=== PATIENT | female | born 1960 | race Two or more races ===

== ENCOUNTER 2024-12-20 16:55 | Inpatient (IN) | payer MEDICARE, OTHER ==
[~2024-12-20] VITALS: Ht 162.6 cm; Wt 64.4 kg
[2024-12-20 17:43] LABS: PLATELET COUNT (AUTO) 218 K/uL (150-450); RED BLOOD CELL COUNT(AUTO) 3.45 MIL/uL (4.0-5.2); RED CELL DISTRIBUTION WIDTH 17.3 % (11.5-15.0); WHITE BLOOD COUNT (AUTO) 5.7 K/uL (4.3-11.0)
[2024-12-20 17:55] LABS: CALCIUM, SERUM 9.2 mg/dL (8.5-10.1); CREATININE 1.2 mg/dL (0.6-1.3); SODIUM SERUM 143 mmol/L (136-145); UREA NITROGEN, BLOOD 24 mg/dL (7-18)
[2024-12-20 17:56] LABS: APPEARANCE,URINE CLEAR (CLEAR); BLOOD, URINE NEGATIVE Ery/uL (NEGATIVE); LEUKOCYTE ESTERASE ,URINE NEGATIVE (NEGATIVE); NITRITE, URINE NEGATIVE (NEGATIVE); UGLUCOSE 2+ mg/dL (NEGATIVE)
[2024-12-20 18:03] LABS: ASPARTATE AMINOTRANSFERASE 18 U/L (15-37); TOTAL PROTEIN, SERUM 7.5 g/dL (6.4-8.2)
[2024-12-20 18:07] LABS: LACTIC ACID 1.6 mmol/L (0.4-2.0)
[2024-12-20 19:08] LABS: ADD URINE CULTURE NO; SQUAMOUS EPITHELIAL CELL,UR Moderate /HPF (None Seen)
[2024-12-20] MEDS ORDERED: Z GUARD REMEDY 4 OZ OINT TP PRN (20:00)
[2024-12-20] MEDS ORDERED: MAGNESIUM HYDROXIDE 30 ML UDC PO PRN (20:00)
[2024-12-20] MEDS ORDERED: MAG HYDROX/AL HYDROX/SIMETH 30 ML UDC PO PRN (20:00)
[2024-12-20] MEDS ORDERED: ONDANSETRON HCL/PF 4 MG/2 ML VIAL IVP PRN (20:00)
[2024-12-20] MEDS ORDERED: ACETAMINOPHEN 325 MG TABLET PO PRN (20:00)
[2024-12-20] MEDS: IV NS 0.9% 1,000 ML IV PRN (20:47)
[2024-12-20 21:05] VITALS: BP 134/76; TEMP 97.5; O2SAT 99
[2024-12-20] MEDS ORDERED: DEXTROSE 50%-WATER 50 ML DISP.SYRIN IV PRN (23:30)
[2024-12-21 06:26] LABS: PLATELET COUNT (AUTO) 205 K/uL (150-450); RED BLOOD CELL COUNT(AUTO) 3.26 MIL/uL (4.0-5.2); RED CELL DISTRIBUTION WIDTH 17.5 % (11.5-15.0); WHITE BLOOD COUNT (AUTO) 5.5 K/uL (4.3-11.0)
[2024-12-21] MEDS: BLOOD SUGAR DIAGNOSTIC 1 EACH STRIP IN SCH (06:33)
[2024-12-21] MEDS: INSULIN REGULAR, HUMAN 100 UNIT/ML 3 ML VIAL SQ PRN (06:36)
[2024-12-21 06:39] LABS: ASPARTATE AMINOTRANSFERASE 13.0 U/L (15-37); CALCIUM, SERUM 8.9 mg/dL (8.5-10.1); CREATININE 1.1 mg/dL (0.6-1.3); PHOSPHORUS 3.9 mg/dL (2.5-4.9); SODIUM SERUM 146.0 mmol/L (136-145); TOTAL PROTEIN, SERUM 6.7 g/dL (6.4-8.2); UREA NITROGEN, BLOOD 24.0 mg/dL (7-18)
[2024-12-21 08:00] VITALS: BP 132/79; TEMP 97.9; O2SAT 97
[2024-12-21 08:07] VITALS: BP 132/79; TEMP 97.9; O2SAT 97
[2024-12-21] MEDS ORDERED: VALP250S4 PO (11:59)
[2024-12-21] MEDS ORDERED: HYDR25TA4 PO (11:59)
[2024-12-21] MEDS ORDERED: CARB-36 PO (11:59)
[2024-12-21] MEDS ORDERED: AMLO5TAB4 PO (11:59)
[2024-12-21] MEDS ORDERED: EMPA10TA PO (11:59)
[2024-12-21] MEDS ORDERED: ATOR40TA PO (11:59)
[2024-12-21] MEDS ORDERED: VALP250S3 PO (11:59)
[2024-12-21] MEDS ORDERED: METF-440 PO (11:59)
[2024-12-21] MEDS ORDERED: OLAN10TA3 PO (11:59)
[2024-12-21] MEDS ORDERED: OLAN10TA6 PO (15:33)
[2024-12-21 16:00] VITALS: BP 142/85; TEMP 97.9; O2SAT 100
[2024-12-21] MEDS: OLANZAPINE ZYDIS 5 MG TAB.RAPDIS PO SCH (16:05)
[2024-12-21] MEDS: METFORMIN 500 MG TABLET PO SCH (16:05)
[2024-12-21] MEDS: CARBIDOPA/LEVODOPA 25/100 MG 1 UDTAB PO SCH (16:05)
[2024-12-21] MEDS: VALPROIC ACID 250 MG/5 ML UDC PO SCH ×2 (16:05→21:29)
[2024-12-21] MEDS ORDERED: OLANZAPINE 10 MG TABLET PO SCH (17:00)
[2024-12-21] MEDS ORDERED: VALPROIC ACID 250 MG/5 ML UDC PO SCH (17:00)
[2024-12-21 19:28] LABS: CREATININE, URINE 29.1 MG/DL (30.0-125.0); URINE SODIUM, RANDOM 109.0 mmol/l (40-220); URINE TOTAL PROTEIN 3.7 mg/dL (0-11.9)
[2024-12-22 02:07] VITALS: BP 115/93; TEMP 97.7; O2SAT 100
[2024-12-22 06:42] LABS: PLATELET COUNT (AUTO) 178 K/uL (150-450); RED BLOOD CELL COUNT(AUTO) 3.09 MIL/uL (4.0-5.2); RED CELL DISTRIBUTION WIDTH 17.4 % (11.5-15.0); WHITE BLOOD COUNT (AUTO) 5.7 K/uL (4.3-11.0)
[2024-12-22 07:08] LABS: ASPARTATE AMINOTRANSFERASE 14.0 U/L (15-37); CALCIUM, SERUM 8.4 mg/dL (8.5-10.1); CREATININE 1.0 mg/dL (0.6-1.3); PHOSPHORUS 2.3 mg/dL (2.5-4.9); SODIUM SERUM 146.0 mmol/L (136-145); TOTAL PROTEIN, SERUM 6.4 g/dL (6.4-8.2); UREA NITROGEN, BLOOD 32.0 mg/dL (7-18)
[2024-12-22 07:14] LABS: CREATINE KINASE, TOTAL 33.0 U/L (26-192)
[2024-12-22 08:00] VITALS: BP 107/71; TEMP 98.2; O2SAT 97
[2024-12-22] MEDS: ATORVASTATIN 40 MG TABLET PO SCH (08:21)
[2024-12-22] MEDS: HYDROCHLOROTHIAZIDE 25 MG TABLET PO SCH (08:22)
[2024-12-22] MEDS: AMLODIPINE BESYLATE 5 MG TABLET PO SCH (08:22)
[2024-12-22] MEDS: EMPAGLIFLOZIN 10 MG TABLET PO SCH (08:23)
[2024-12-22] MEDS: IV 1/2NS 1000 ML 1,000 ML IV SCH (10:59)
[2024-12-22 16:00] VITALS: BP 106/84; TEMP 97.5; O2SAT 99
[2024-12-22] MEDS: NEUTRA PHOS 1 POWD.PACKET PO ONE (16:25)
[2024-12-22 20:46] VITALS: BP 105/77; TEMP 97.9; O2SAT 97
[2024-12-23 07:08] LABS: ASPARTATE AMINOTRANSFERASE 18.0 U/L (15-37); CALCIUM, SERUM 8.6 mg/dL (8.5-10.1); CREATININE 0.8 mg/dL (0.6-1.3); PHOSPHORUS 3.0 mg/dL (2.5-4.9); SODIUM SERUM 144.0 mmol/L (136-145); TOTAL PROTEIN, SERUM 6.4 g/dL (6.4-8.2); UREA NITROGEN, BLOOD 26.0 mg/dL (7-18)
[2024-12-23 07:09] LABS: PLATELET COUNT (AUTO) 99 K/uL (150-450); RED BLOOD CELL COUNT(AUTO) 3.15 MIL/uL (4.0-5.2); RED CELL DISTRIBUTION WIDTH 18.2 % (11.5-15.0); WHITE BLOOD COUNT (AUTO) 4.9 K/uL (4.3-11.0)
[2024-12-23 08:00] VITALS: BP 103/72; TEMP 98.1; O2SAT 99
[2024-12-23] MEDS ORDERED: IV 1/2NS 1000 ML 1,000 ML IV PRN (08:25)
[2024-12-23 08:27] VITALS: BP 103/72
[2024-12-23 08:46] LABS: LYMPHOCYTES % (MANUAL) 47 % (16-48); MONOCYTES % (MANUAL) 4 % (0-11.0); NEUTROPHILS % (MANUAL) 49 (42-76); PLATELET ESTIMATE DECREASED
== END 2024-12-23 14:58 | DRG 641 ==
LOC: ER 17:14 → MED 20:22
PROVIDERS: ADMIT Nurse Practitioner Acute Care; ATTEND Internal Medicine
DX: E86.0 Dehydration (principal); E44.0 Moderate protein-calorie malnutrition; I13.0 Hypertensive heart and chronic kidney disease with heart failure and stage 1 through stage 4 chronic kidney disease, or unspecified chronic kidney disease; F03.93 Unspecified dementia, unspecified severity, with mood disturbance; F03.92 Unspecified dementia, unspecified severity, with psychotic disturbance; R62.7 Adult failure to thrive; E11.22 Type 2 diabetes mellitus with diabetic chronic kidney disease; M10.9 Gout, unspecified; E88.09 Other disorders of plasma-protein metabolism, not elsewhere classified; Z88.5 Allergy status to narcotic agent; Z88.8 Allergy status to other drugs, medicaments and biological substances; Z91.048 Other nonmedicinal substance allergy status; I50.9 Heart failure, unspecified; N18.9 Chronic kidney disease, unspecified; R79.89 Other specified abnormal findings of blood chemistry; F29 Unspecified psychosis not due to a substance or known physiological condition; D64.9 Anemia, unspecified; E87.0 Hyperosmolality and hypernatremia; E86.1 Hypovolemia; F39 Unspecified mood [affective] disorder
CPT/HCPCS: 36415; 71045-TC; 80048-TC; 80053-TC; 80076-TC; 81001; 82550-TC; 82570-TC; 82962-TC; 83605-TC; 83690-TC; 83735-TC; 83880; 83970; 84100-TC; 84300-TC; 84484-TC; 85025-TC; 85027-TC; 87081-TC; 97110-TC; 97116-TC; 97530-TC; A4223; G0378; J1815; J3490; J7030

== ENCOUNTER 2025-01-29 14:49 | Emergency (ER) | payer MEDICARE, OTHER ==
[~2025-01-29] VITALS: Ht 167.6 cm; Wt 61.7 kg
[~2025-01-29 14:49] MED LIST: AMLO5TAB4 PO; ATOR40TA PO; CARB-36 PO; EMPA10TA PO; HYDR25TA4 PO; METF-440 PO; OLAN10TA6 PO; VALP250S3 PO; VALP250S4 PO
[2025-01-29 14:53] VITALS: TEMP 98.1
[2025-01-29 16:35] VITALS: BP 101/63; O2SAT 97
[2025-01-29] MEDS ORDERED: ACET325T53 PO (17:35)
[2025-01-29] MEDS ORDERED: IBUP-1488 PO (17:35)
== END 2025-01-29 19:20 ==
LOC: ER 14:57
DX: S00.83XA Contusion of other part of head, initial encounter (principal); M25.561 Pain in right knee; M25.562 Pain in left knee; R51.9 Headache, unspecified; E03.9 Hypothyroidism, unspecified; E78.00 Pure hypercholesterolemia, unspecified; I12.9 Hypertensive chronic kidney disease with stage 1 through stage 4 chronic kidney disease, or unspecified chronic kidney disease; E11.22 Type 2 diabetes mellitus with diabetic chronic kidney disease; N18.9 Chronic kidney disease, unspecified; F03.90 Unspecified dementia, unspecified severity, without behavioral disturbance, psychotic disturbance, mood disturbance, and anxiety; F25.9 Schizoaffective disorder, unspecified; M10.9 Gout, unspecified; Z88.8 Allergy status to other drugs, medicaments and biological substances; Z79.84 Long term (current) use of oral hypoglycemic drugs; Z79.899 Other long term (current) drug therapy; Z88.5 Allergy status to narcotic agent; W05.0XXA Fall from non-moving wheelchair, initial encounter; Y93.89 Activity, other specified; Y92.89 Other specified places as the place of occurrence of the external cause; Y99.8 Other external cause status
CPT/HCPCS: 70450-TC; 73564-TC